=== PATIENT | female | born 1995 | race African-American/Black ===

== ENCOUNTER 2018-10-28 20:00 | Emergency (ER) | payer SELFPAY ==
[~2018-10-28] VITALS: Ht 165.1 cm; Wt 118.0 kg
[2018-10-28] MEDS ORDERED: SODIUM CHLORIDE 0.9% 1,000 ML IV ONE (23:15)
[2018-10-28] MEDS ORDERED: METOCLOPRAMIDE HCL 10MG/2ML VIAL IV ONE (23:15)
[2018-10-28] MEDS ORDERED: KETOROLAC 15MG/ML VIAL IV ONE (23:15)
[2018-10-28] MEDS ORDERED: DIPHENHYDRAMINE 50MG/ML VIAL IV ONE (23:15)
[2018-10-29] MEDS ORDERED: KETOROLAC 30MG/ML VIAL IV ONE (02:15)
[2018-10-29 02:24] VITALS: BP 152/75
== END 2018-10-29 03:16 | disposition home or self-care (01) ==
LOC: ER 20:00
DX: R51 Headache (principal); R03.0 Elevated blood-pressure reading, without diagnosis of hypertension
CPT/HCPCS: 70450; 81025; 96374; 96375; 99284; J1200; J1885; J2765; J7030; Z7610